=== PATIENT | female | born 1990 | race Caucasian/White ===

== ENCOUNTER 2018-06-03 19:09 | Emergency (ER) | payer MEDICAID, OTHER ==
[2018-06-03 19:09] VITALS: BMI 27.4
[2018-06-03 20:13] VITALS: BP 116/64; PULSE 67; RESP 16; TEMP 98.2; O2SAT 100
--- NOTE | 2018-06-03 20:49 | ED PDOC ---
HPI: CCC, URI, Sore Throat Chief Complaint (Provider): ENT Problem History Per: Patient History/Exam Limitations: no limitations Onset/Duration Of Symptoms: Persistent (x3 weeks) Current Symptoms Are (Timing): Still Present Additional Complaint(s): 27 year old female arrives to ED with a complaint of sore throat exacerbated when she eats for the last 3 weeks. She denies any fever or chills and able to tolerate PO. Otherwise, no further medical complaints. PMD: Dr. Tejinder Fajardo <Charley Park - Last Filed: 06/03/18 22:14> <Jasmeet Avery - Last Filed: 06/04/18 21:28> Time Seen by Provider: 06/03/18 20:17 Chief Complaint (Nursing): ENT Problem Past Medical History Reviewed: Historical Data Vital Signs: Last Vital Signs Temp 98.2 F 06/03/18 20:10 Pulse 67 06/03/18 20:10 Resp 16 06/03/18 20:10 BP 116/64 06/03/18 20:10 Pulse Ox 100 06/03/18 20:10 - Medical History PMH: Bronchitis - Family History Family History: States: Unknown Family Hx - Immunization History Hx Tetanus Toxoid Vaccination: Yes Hx Influenza Vaccination: Yes Hx Pneumococcal Vaccination: No <Charley Park - Last Filed: 06/03/18 22:14> Vital Signs: Last Vital Signs Temp 98.2 F 06/03/18 20:10 Pulse 67 06/03/18 20:10 Resp 16 06/03/18 20:10 BP 116/64 06/03/18 20:10 Pulse Ox 100 06/03/18 22:16 <Jasmeet Avery - Last Filed: 06/04/18 21:28> - Home Medications Home Medications: Ambulatory Orders Medication Instructions Recorded Albuterol HFA [Ventolin HFA] 1 puff IH QID #1 puff 06/14/14 Hydroxyzine Pamoate [Vistaril] 25 mg PO TID PRN #21 cap 06/14/14 RX: Ibuprofen [Motrin Tab] 600 mg PO Q8 #12 tab 06/03/18 - Allergies Allergies/Adverse Reactions: Allergies Allergy/AdvReac Type Severity Reaction Status Date / Time No Known Allergies Allergy Verified 06/03/18 20:10 Review of Systems ROS Statement: Except As Marked, All Systems Reviewed And Found Negative Constitutional: Negative for: Fever, Chills ENT: Positive for: Throat Pain <Charley Park Magan - Last Filed: 06/03/18 22:14> Physical Exam - Reviewed Nursing Documentation Reviewed: Yes Vital Signs Reviewed: Yes - Physical Exam Appears: Positive for: No Acute Distress Head Exam: Positive for: ATRAUMATIC, NORMAL INSPECTION, NORMOCEPHALIC Skin: Positive for: Normal Color Eye Exam: Positive for: Normal appearance ENT: Positive for: TM Is/Are (nonbulging or nonerythematous), Pharyngeal Erythema (mild). Negative for: Tonsillar Swelling (or erythema) Neck: Positive for: Normal, Supple Cardiovascular/Chest: Positive for: Regular Rate, Rhythm Respiratory: Positive for: Normal Breath Sounds. Negative for: Wheezing, Respiratory Distress Neurologic/Psych: Positive for: Alert, Oriented <XavierCharley S - Last Filed: 06/03/18 22:14> - ECG O2 Sat by Pulse Oximetry: 100 (RA) Pulse Ox Interpretation: Normal <ParkCharley S - Last Filed: 06/03/18 22:14> Medical Decision Making Medical Decision Making: Time: 2019 Initial Plan: * Rapid strep Rapid strep neg. Pt feeling much better after motrin, tolerating po, no distress. ScribeAttestation: Documented byCharisma Mcduffie, acting as a scribe for Charley Park PA-C. Provider ScribeAttestation: All medical record entries made by the Scribe were at my direction and personally dictated by me. I have reviewed the chart and agree that the record accurately reflects my personal performance of the history, physical exam, medical decision making, and the department course for this patient. I have also personally directed, reviewed, and agree with the discharge instructions and disposition. <Charley Park - Last Filed: 06/03/18 22:14> Disposition - Disposition Disposition: Routine/Home Disposition Time: 22:15 <Charley Park - Last Filed: 06/03/18 22:14> <Jasmeet Avery - Last Filed: 06/04/18 21:28> - Clinical Impression Clinical Impression: Pharyngitis - Disposition Referrals: Ricci Licona MD [Staff Provider] - Condition: GOOD Prescriptions: RX: Ibuprofen [Motrin Tab] 600 mg PO Q8 #12 tab Instructions: Viral Pharyngitis Forms: [facility] ([place]) - PA / FUR TAILOR / Resident Statement /DO has reviewed & agrees with the documentation as recorded. <Jasmeet Avery - Last Filed: 06/04/18 21:28>
== END 2018-06-03 22:24 | disposition home or self-care (01) ==
LOC: H.ER 19:09
DX: J02.9 Acute pharyngitis, unspecified (principal)